=== PATIENT | female | born 1990 | race African-American/Black ===

== ENCOUNTER 2016-11-09 10:15 | Emergency (ER) | payer MEDICAID ==
[~2016-11-09] VITALS: Ht 167.6 cm; Wt 91.0 kg
[2016-11-09] MEDS ORDERED: LEVETIRACETAM 1,000 MG in SODIUM CHLORIDE 0.9% 100 ML IV ONE (11:15)
[2016-11-09 11:32] LABS: BASOPHILS % 0.2 % (0.0-2.0); EOSINOPHILS % 0.4 % (0.0-5.0); HEMATOCRIT. 35.4 % (36.0-48.0); HEMOGLOBIN. 11.9 g/dL (12.0-16.0); LYMPHOCYTES % 40.8 % (20.0-50.0); MEAN CORPUSCULAR HGB CONC 33.7 g/dL (31.0-37.0); MEAN CORPUSCULAR VOLUME 83.3 fL (81.0-99.0); MEAN PLATELET VOLUME 7.7 fl (7.4-10.4); MONOCYTES % 7.7 % (2.0-8.0); NEUTROPHILS % 50.9 % (40.0-76.0); PLATELET 253 x1000/uL (130-400); RED BLOOD CELL COUNT 4.25 mill/uL (4.2-5.4); RED CELL DISTRIBUTION WIDTH 13.1 % (11.6-14.6); WHITE BLOOD COUNT 5.5 x1000/uL (4.5-11.0)
[2016-11-09 11:36] LABS: CHLORIDE 106 mEq/L (98-107); INDEX HEMOLYSI 1 (1-3); INDEX ICTERIC 1 (1-4); INDEX LIPEMIC 1 (1-3)
[2016-11-09 11:37] LABS: CLARITY URINE CLOUDY (CLEAR); COLOR URINE YELLOW (YELLOW); GLUCOSE URINE NEGATIVE (NEGATIVE); KETONES URINE TRACE (NEGATIVE); LEUKOCYTE ESTERASE URINE 2+ (NEGATIVE); NITRITE URINE NEGATIVE (NEGATIVE); OCCULT BLOOD URINE NEGATIVE (NEGATIVE); PROTEIN URINE NEGATIVE (NEGATIVE); SPECIFIC GRAVITY URINE 1.025 (1.005-1.030)
[2016-11-09 11:41] LABS: ALBUMIN 3.4 g/dL (3.4-5.0); ANION GAP 13; CARBON DIOXIDE 24 mEq/L (21-32); UREA NITROGEN BLOOD 5 mg/dL (7-21)
[2016-11-09 11:46] LABS: ALANINE AMINOTRANSFERASE 16 IU/L (13-61); ETHANOL BLOOD < 10 mg/dL; eGFR > 60 mL/min (>60)
[2016-11-09 11:58] LABS: RBC URINE 0-2 /hpf (0-2); SQUAMOUS EPITHELIAL CELL URINE 3+ /lpf (RARE/1+)
[2016-11-09 11:59] LABS: BACTERIA URINE 1+; MUCUS URINE 1+ /lpf (< = 2+)
[2016-11-09 12:11] LABS: *AMPHETAMINES SCREEN URINE NEGATIVE (NEGATIVE); *BARBITURATES SCREEN URINE NEGATIVE (NEGATIVE); *BENZODIAZEPINES SCREEN URINE NEGATIVE (NEGATIVE); *COCAINE SCREEN URINE NEGATIVE (NEGATIVE); CANNABINOID URINE SCREEN NEGATIVE (NEGATIVE); ECSTASY MDMA SCREEN URINE NEGATIVE (NEGATIVE); METHADONE URINE SCREEN NEGATIVE (NEGATIVE); OPIATES URINE SCREEN NEGATIVE (NEGATIVE); PHENCYCLIDINE URINE SCREEN NEGATIVE (NEGATIVE)
[2016-11-09 14:14] VITALS: BP 124/78
== END 2016-11-09 14:43 | disposition home or self-care (01) ==
LOC: ER 11:55
DX: O99.352 Diseases of the nervous system complicating pregnancy, second trimester (principal); G40.909 Epilepsy, unspecified, not intractable, without status epilepticus; O21.0 Mild hyperemesis gravidarum; O26.892 Other specified pregnancy related conditions, second trimester; R03.0 Elevated blood-pressure reading, without diagnosis of hypertension; Z3A.19 19 weeks gestation of pregnancy; Z91.14 Patient's other noncompliance with medication regimen
CPT/HCPCS: 36415; 70551; 76801; 76817; 80053; 80305; 81001; 85025; 96365; 96366; 99285; G0482; J1953; J7050

== ENCOUNTER 2016-12-23 20:20 | Emergency (ER) | payer MEDICAID ==
[~2016-12-23] VITALS: Ht 167.6 cm; Wt 82.0 kg
[2016-12-23] MEDS ORDERED: SODIUM CHLORIDE 0.9% 1,000 ML IV ONE (20:34)
[2016-12-23 20:54] LABS: BASOPHILS % 0.1 % (0.0-2.0); EOSINOPHILS % 0.9 % (0.0-5.0); HEMATOCRIT. 34.9 % (36.0-48.0); HEMOGLOBIN. 11.6 g/dL (12.0-16.0); LYMPHOCYTES % 40.2 % (20.0-50.0); MEAN CORPUSCULAR HEMOGLOBIN 28.1 pg (28.0-32.0); MEAN CORPUSCULAR VOLUME 84.2 fL (81.0-99.0); MEAN PLATELET VOLUME 8.1 fl (7.4-10.4); MONOCYTES % 8.1 % (2.0-8.0); NEUTROPHILS % 50.7 % (40.0-76.0); PLATELET 242 x1000/uL (130-400); RED BLOOD CELL COUNT 4.15 mill/uL (4.2-5.4); RED CELL DISTRIBUTION WIDTH 13.6 % (11.6-14.6)
[2016-12-23 21:21] LABS: B-HCG QUANTITATIVE 18028 mIU/mL (<3); CARBON DIOXIDE 23 mEq/L (21-32); CHLORIDE 107 mEq/L (98-107)
[2016-12-23 21:33] LABS: *AMPHETAMINES SCREEN URINE NEGATIVE (NEGATIVE); *BARBITURATES SCREEN URINE NEGATIVE (NEGATIVE); *BENZODIAZEPINES SCREEN URINE NEGATIVE (NEGATIVE); *COCAINE SCREEN URINE NEGATIVE (NEGATIVE); CANNABINOID URINE SCREEN NEGATIVE (NEGATIVE); METHADONE URINE SCREEN NEGATIVE (NEGATIVE); OPIATES URINE SCREEN NEGATIVE (NEGATIVE); PHENCYCLIDINE URINE SCREEN NEGATIVE (NEGATIVE)
[2016-12-23] MEDS ORDERED: ACETAMINOPHEN 325MG TABLET PO ONE (22:30)
[2016-12-23 23:00] VITALS: BP 123/69
== END 2016-12-23 22:58 | disposition left against medical advice (07) ==
LOC: ER 20:44
DX: O26.892 Other specified pregnancy related conditions, second trimester (principal); R10.9 Unspecified abdominal pain; Z3A.20 20 weeks gestation of pregnancy
CPT/HCPCS: 36415; 76805; 80053; 80305; 84702; 85025; 96360; 99285; J7030; Z7610

== ENCOUNTER 2017-03-10 20:25 | Observation (INO) | payer MEDICAID ==
[~2017-03-10] VITALS: Ht 167.6 cm; Wt 87.5 kg
[2017-03-10 21:39] LABS: CLARITY URINE CLEAR (CLEAR); COLOR URINE YELLOW (YELLOW); GLUCOSE URINE NEGATIVE (NEGATIVE); KETONES URINE NEGATIVE (NEGATIVE); LEUKOCYTE ESTERASE URINE NEGATIVE (NEGATIVE); NITRITE URINE NEGATIVE (NEGATIVE); OCCULT BLOOD URINE NEGATIVE (NEGATIVE); PH URINE 6.5 (4.5-8.0); PROTEIN URINE NEGATIVE (NEGATIVE); SPECIFIC GRAVITY URINE 1.009 (1.005-1.030); UROBILINOGEN URINE 0.2 E.U./dL (0.2-1.0)
[2017-03-10 22:07] LABS: *AMPHETAMINES SCREEN URINE NEGATIVE (NEGATIVE); *BARBITURATES SCREEN URINE NEGATIVE (NEGATIVE); *BENZODIAZEPINES SCREEN URINE NEGATIVE (NEGATIVE); *COCAINE SCREEN URINE NEGATIVE (NEGATIVE); CANNABINOID URINE SCREEN NEGATIVE (NEGATIVE); METHADONE URINE SCREEN NEGATIVE (NEGATIVE); OPIATES URINE SCREEN NEGATIVE (NEGATIVE); PHENCYCLIDINE URINE SCREEN NEGATIVE (NEGATIVE)
== END 2017-03-10 23:01 | disposition home or self-care (01) ==
LOC: L&D 20:25
PROVIDERS: ADMIT Specialist; ATTEND Specialist
DX: O46.92 Antepartum hemorrhage, unspecified, second trimester (principal); O62.9 Abnormality of forces of labor, unspecified; Z3A.26 26 weeks gestation of pregnancy
CPT/HCPCS: 76805; 76818; 80305; 81003; 99281; G0378

== ENCOUNTER 2017-04-22 14:48 | Observation (INO) | payer MEDICAID ==
[~2017-04-22] VITALS: Ht 165.1 cm; Wt 77.0 kg
[2017-04-22] MEDS ORDERED: SODIUM CHLORIDE 0.9% 1,000 ML IV ONE ×2 (15:15→16:45)
[2017-04-22 15:36] LABS: BASOPHILS % 0.2 % (0.0-2.0); EOSINOPHILS % 0.7 % (0.0-5.0); HEMATOCRIT. 31.9 % (36.0-48.0); HEMOGLOBIN. 10.8 g/dL (12.0-16.0); LYMPHOCYTES % 25.4 % (20.0-50.0); MEAN CORPUSCULAR HEMOGLOBIN 28.2 pg (28.0-32.0); MEAN PLATELET VOLUME 7.7 fl (7.4-10.4); MONOCYTES % 8.9 % (2.0-8.0); NEUTROPHILS % 64.8 % (40.0-76.0); PLATELET 197 x1000/uL (130-400); RED BLOOD CELL COUNT 3.85 mill/uL (4.2-5.4); RED CELL DISTRIBUTION WIDTH 13.2 % (11.6-14.6)
[2017-04-22 15:40] LABS: CHLORIDE 107 mEq/L (98-107)
[2017-04-22 15:48] LABS: CARBON DIOXIDE 22 mEq/L (21-32)
[2017-04-22 15:51] LABS: TROPONIN I < 0.02 ng/mL (0.00-0.04)
[2017-04-22] MEDS ORDERED: BACITRACIN ZINC OINT UDPKT TOP ONE (16:15)
[2017-04-22] MEDS: POTASSIUM CHLORIDE 20MEQ TABLET SR PO ONE ×2 (16:15→16:54)
[2017-04-22 16:53] VITALS: BP 104/59
[2017-04-22] MEDS ORDERED: MVI, ADULT NO.1 10 ML in SODIUM CHLORIDE 0.9% 1,000 ML IV SCH ×2 (18:45)
[2017-04-22] MEDS ORDERED: ONDANSETRON HCL 4MG/2ML VIAL IV SCH (18:45)
[2017-04-22] MEDS ORDERED: FOLI-43 PO (20:29)
[2017-04-22] MEDS ORDERED: PREN1TAB78 PO (20:29)
[2017-04-22] MEDS ORDERED: KEPPSOL GT (20:29)
[2017-04-22] MEDS ORDERED: LEVE1000 PO (20:29)
== END 2017-04-22 20:48 | disposition home or self-care (01) ==
LOC: ER 15:11 → L&D 16:52
PROVIDERS: ADMIT Specialist; ATTEND Specialist
DX: O62.9 Abnormality of forces of labor, unspecified (principal); O36.8130 Decreased fetal movements, third trimester, not applicable or unspecified; O26.893 Other specified pregnancy related conditions, third trimester; R42 Dizziness and giddiness; O99.283 Endocrine, nutritional and metabolic diseases complicating pregnancy, third trimester; E86.0 Dehydration; E87.6 Hypokalemia; O99.013 Anemia complicating pregnancy, third trimester; Z3A.33 33 weeks gestation of pregnancy
CPT/HCPCS: 36415; 71010; 76815; 76818; 80053; 83880; 84484; 85025; 93005; 96361; 96365; 96366; 96375; 99281; G0378; J2405; J3490; 96360; J7030

== ENCOUNTER 2017-05-15 15:45 | Observation (INO) | payer MEDICAID ==
[~2017-05-15] VITALS: Ht 167.6 cm; Wt 88.0 kg
[~2017-05-15 15:45] MED LIST: FOLI-43 PO; KEPPSOL GT; LEVE1000 PO; PREN1TAB78 PO
[2017-05-15] MEDS ORDERED: ONDANSETRON HCL 4MG/2ML VIAL IM SCH (16:30)
[2017-05-15] MEDS ORDERED: ACETAMINOPHEN 500MG TABLET PO ONE (16:30)
== END 2017-05-15 18:30 | disposition home or self-care (01) ==
LOC: L&D 15:45
PROVIDERS: ADMIT Obstetrics & Gynecology; ATTEND Obstetrics & Gynecology
DX: O26.893 Other specified pregnancy related conditions, third trimester (principal); R42 Dizziness and giddiness; R11.0 Nausea; Z3A.36 36 weeks gestation of pregnancy; Z91.81 History of falling
CPT/HCPCS: 76805; 76818; 96372; 99281; G0378; J2405

== ENCOUNTER 2017-05-22 05:21 | Observation (INO) | payer MEDICAID ==
[~2017-05-22] VITALS: Ht 167.6 cm; Wt 88.0 kg
[2017-05-22] MEDS ORDERED: LEVE1000 PO (06:00)
[2017-05-22] MEDS ORDERED: KEPP500 PO (06:00)
[2017-05-22] MEDS ORDERED: PNV1TABL76 MT (06:00)
[2017-05-22] MEDS ORDERED: FERR325T6 PO (06:00)
[2017-05-22] MEDS ORDERED: FOLI-43 PO (06:00)
== END 2017-05-22 06:30 | disposition home or self-care (01) ==
LOC: L&D 05:21
PROVIDERS: ADMIT Specialist; ATTEND Specialist
DX: O26.893 Other specified pregnancy related conditions, third trimester (principal); R10.30 Lower abdominal pain, unspecified; Z3A.37 37 weeks gestation of pregnancy
CPT/HCPCS: 99281; G0378